=== PATIENT | female | born 1950 | race Caucasian/White ===

== ENCOUNTER → 2016-10-20 | Outpatient (CLI) | payer OTHER | LOC: BHFA 09:00 | PROVIDERS: ATTEND Internal Medicine Interventional Cardiology | DX: I25.10 Atherosclerotic heart disease of native coronary artery without angina pectoris (principal); E78.5 Hyperlipidemia, unspecified ==

== ENCOUNTER 2016-11-13 07:31 | Inpatient (IN) | payer OTHER ==
--- NOTE | 2016-11-09 08:38 | PDGENHP ---
History and Physical - Chief Complaint Left Hip Pain - History of Present Illness 1. Left~Gluteus Medius Tendinopathy~and partial tears, GT bursitis HISTORY OF PRESENT ILLNESS: Wayneis a 66 y.o.~active female~who I have had the pleasure to consult on today.~I have enjoyed meeting her. She~lives in [place]. 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 ~She~is single/window; she~has two~children. ~Wayneenjoys pool exercise, hiking. Cinthya's left~hip pain~started summer 2014, with no~recalled trauma or injury, and with no~previous complaints. Presentation today is of~anterior and lateral left~hip pain. ~The hip does~wake her~at night and does not~click and catch on her. Sitting can be uncomfortable~ for her. Waynedoes~report suffering from lower back pain episodes. Waynehas~participated in physical therapy for several months~and has~tried other conservative measures including one Left ~GT bursa hip injection July 2015 , which provided some relief for a couple months . She~has not~received sufficient symptomatic improvement. Waynehas~utilized medication for pain management, including Vicodin. Waynehas used medication for intermittently several months. Waynedenies issues with the right~hip. ~ Wayneunderstands that she~has a hip and pelvis problem which should be researched and wishes to get a better understanding of her~hip status, followed by an establishment of a treatment strategy, hoping she~would be able to get back to her~well being active life. History: Past medical history: ~ None which is relevant Relevant familial history: None which is relevant Past surgical history: No. Surgery Anesthesia Year Outcome 1 Hysterectomy General Good 2 Major Bladder Repair General Good 3 Foot Surgeries General Mid 80s Good 4 Ankle Scope General 07/07 Good 5 Toe Repairs Left General & 02/05 Good Waynedescribes problematic issues with general anesthesia which includes nausea , which transdermal patch helps to relieve and avoid nausea. I have reviewed, verified and agree with the past medical, surgical, family and social history. Current Medications:~has a current medication list which includes the following prescription(s): allopurinol, aspirin, biotin, cholecalciferol (vitamin d3), docosahexanoic acid/epa, hydrocodone-acetaminophen, meclizine hcl, metoprolol succinate, pyridoxine hcl (vitamin b6), ranitidine hcl, rosuvastatin, tocilizumab, vitamin e, and zoledronic [id number]. ALLERGIES:~is allergic to bactrim [sulfamethoxazole-trimethoprim]; nucynta [ tapentadol]; and percocet [oxycodone-acetaminophen]. Objective: Physical Examination: Wayneis 5~feet 6~inches tall and weighs 205~Lbs. Wayneis AAO x3; she~is well- nourished, in NAD. Skin is warm and dry. ~Breathing is non-labored. ~CV with RRR by pulse. Abdomen is soft, NTND. Currently, she~walks with a abnormal antalgic~gait. Trendelenburg sign is negative~and proprioception~is reduced, both~sides. Lower spine examination is negative~for sciatic or femoral nerve irritation with negative~SLR &~femoral stretch tests. Range of motion of the spine is normal~for flexion, extension, and rotations, with~associated pain. Strength, Sensation and pulses are normal - bilaterally Hip ROM (degrees): FL ER At 90~hip FL IR At 90~hip FL AB R 95 65 5 35 L 95 55 5 40 Specific hip and pelvis tests: Quadrant KVNG Roll R + + Negative L Negative Negative Negative Glut. Med ITB R Negative 5/5 strength Negative 5/5 strength L +++ 4/5 strength Negative 4/5 strength Greater trochanteric burse is painful~on both hips~L>>R. Piriformis tests: FAIR is negative, with no~local signs of neuritis related to sciatic nerve. On a daily basis, Cinthya's overall total pain come from GT/Gluts region Imaging: Radiology studies which I~have personally reviewed, analyzed and measured are below: XR: AP of the hip and pelvis: Joint space is preserved MRI shows: Left Gluteus Medius tendon tear, Gt bursitis Impression and plan:~ Wayneis a 66 y.o.~active female~suffering from symptomatic left pelvic pain due to Left~Gluteus Medius Tendinopathy~causing significant disability to her~ and altering~her~sport and life activities. Physical examination, imaging, and her~story correspond with the diagnosis mentioned above. We discussed the pathology of Gluteus Medius tendon tear and details of conservative measures (Steroid/PRP injections, PT) and~its surgical repair. ~We discussed the risks, benefits and expected outcomes for this surgery, including rehabilitation protocols afterwards. Cinthya~will review the info presented. Cinthya~will talk with our patient scheduler about possible surgery dates. Cinthya~is happy with this plan. I have also supplied her~with handouts, outlining the expected surgical treatment and rehab involved. I wish~Cinthya~all the best, ~~ Kimberly Kim [facility] History Information - Allergies/Home Medication List Allergies/Adverse Reactions: tapentadol HCl [From Nucynta] Allergy (Mild, Verified 11/02/16 12:46) Itching acetaminophen [From Percocet] Allergy (Verified 11/02/16 12:46) Vomiting oxycodone [From Percocet] Allergy (Verified 11/02/16 12:46) Vomiting sulfamethoxazole [From Bactrim] Allergy (Verified 11/02/16 12:46) Vomiting trimethoprim [From Bactrim] Allergy (Verified 11/02/16 12:46) Vomiting CATS Allergy (Severe, Uncoded 02/25/12 16:49) ASTHMA DUST Allergy (Severe, Uncoded 02/25/12 16:49) ASTHMA Home Medications: Allopurinol 06/07/14 [Last Taken Unknown] Aspirin 81mg (OTC) 06/07/14 [Last Taken Unknown] Betaserc 06/07/14 [Last Taken Unknown] Crestor 06/07/14 [Last Taken Unknown] Krill Oil 06/07/14 [Last Taken Unknown] Meclizine HCl 06/07/14 [Last Taken Unknown] Metoprolol Tartrate 06/07/14 [Last Taken Unknown] Vitamin B6 06/07/14 [Last Taken Unknown] Vitamin E 06/07/14 [Last Taken Unknown] Zantac 06/07/14 [Last Taken Unknown] ACTEMRA 11/02/16 [Last Taken Unknown] BIOTIN 11/02/16 [Last Taken Unknown] Hydrocodon-Acetaminophen 5-500 11/02/16 [Last Taken Unknown] Vitamin D3 11/02/16 [Last Taken Unknown] I have personally reviewed and updated: medical history - Social History Smoking Status: Never smoked Review of Systems Review of Systems: Physical Exam Physical Exam:
[2016-11-13] MEDS ORDERED: ACETAMINOPHEN 500 MG TAB PO ONE (07:36)
[2016-11-13] MEDS ORDERED: PREGABALIN 150 MG CAP PO ONE (07:36)
[2016-11-13] MEDS ORDERED: ceFAZolin 2 GM/DEXTROSE 100 ML IV ONE (07:36)
[2016-11-13] MEDS ORDERED: LR 1,000 ML IV ONE (07:37)
[2016-11-13] MEDS ORDERED: LIDOCAINE 1% 2 ML INJ ID PRN (07:37)
--- NOTE | 2016-11-13 07:48 | PDANEPAE ---
ANE History of Present Illness left gluteus medius tear ANE Past Medical History - Cardiovascular History Hx Hypertension: Yes Hx Arrhythmias: No Hx Chest Pain: No Hx Coronary Artery / Peripheral Vascular Disease: Yes Hx CHF / Valvular Disease: No Hx Palpitations: No Cardiovascular History Comment: CAD. HYPERLIPIDEMIA. HTN. 02/25/12 CARDIAC EVENT AND WAS HOSPITALIZED - ACS NO PCI PERFORMED - Pulmonary History Hx COPD: No Hx Asthma/Reactive Airway Disease: Yes Hx Recent Upper Respiratory Infection: No Hx Oxygen in Use at Home: No Hx Sleep Apnea: No Sleep Apnea Screening Result - Last Documented: Negative Pulmonary History Comment: ASTHMA- USES VENTOLIN VERY OCCASSIONALLY AND HASN'T USED IN AWHILE - Neurologic History Hx Cerebrovascular Accident: No Hx Seizures: No Hx Dementia: No Neurologic History Comment: MENIERE'S DISEASE - Endocrine History Hx Diabetes: No Obesity: yes, moderate Endocrine History Comment: HYPERPARATHYROIDISM - Renal History Hx Renal Disorders: No - Liver History Hx Hepatic Disorders: No - Neurological & Psychiatric Hx Hx Neurological and Psychiatric Disorders: No - Cancer History Hx Cancer: Yes Cancer History Comment: SKIN CA - Congenital Disorder History Hx Congenital Disorders: No - GI History GERD: moderate Hx Gastrointestinal Disorders: Yes Gastrointestinal History Comment: REFLUX - Other Health History Other Health History: WEARS GLASSES. RHEUMATOID ARTHRITIS - Chronic Pain History Chronic Pain: Yes (CHRONIC LOW BACK PAIN) - Surgical History Prior Surgeries: 02/03/[address] GAMEZ. ANKLE SCOPE 2011. COMPLETE HYSTERECTOMY AND BLADDER REPAIR 1992. REMOVAL OF SQUAMOUS AND BASAL CELL ANE Review of Systems Review of Systems: - Exercise capacity METS (RN): 4 METS ANE Patient History - Allergies Allergies/Adverse Reactions: tapentadol HCl [From Nucynta] Allergy (Mild, Verified 11/02/16 12:46) Itching acetaminophen [From Percocet] Allergy (Verified 11/02/16 12:46) Vomiting oxycodone [From Percocet] Allergy (Verified 11/02/16 12:46) Vomiting sulfamethoxazole [From Bactrim] Allergy (Verified 11/02/16 12:46) Vomiting trimethoprim [From Bactrim] Allergy (Verified 11/02/16 12:46) Vomiting CATS Allergy (Severe, Uncoded 02/25/12 16:49) ASTHMA DUST Allergy (Severe, Uncoded 02/25/12 16:49) ASTHMA - Home Medications Home medications: home medication list seen and reviewed Home Medications: Allopurinol 06/07/14 [Last Taken Unknown] Aspirin 81mg (OTC) 06/07/14 [Last Taken Unknown] Betaserc 06/07/14 [Last Taken Unknown] Crestor 06/07/14 [Last Taken Unknown] Krill Oil 06/07/14 [Last Taken Unknown] Meclizine HCl 06/07/14 [Last Taken Unknown] Metoprolol Tartrate 06/07/14 [Last Taken Unknown] Vitamin B6 06/07/14 [Last Taken Unknown] Vitamin E 06/07/14 [Last Taken Unknown] Zantac 06/07/14 [Last Taken Unknown] ACTEMRA 11/02/16 [Last Taken Unknown] BIOTIN 11/02/16 [Last Taken Unknown] Hydrocodon-Acetaminophen 5-500 11/02/16 [Last Taken Unknown] Vitamin D3 11/02/16 [Last Taken Unknown] - Anes Hx Anes Hx: post operative nausea - Smoking Hx Smoking Status: Never smoked - Family Anes Hx Family Hx Anesthesia Complications: UNKNOWN ANE Labs/Vital Signs - Vital Signs Height: 167.64 cm Weight: 90.718 kg ANE Physical Exam - Airway Neck exam: FROM Mallampati Score: Class 2 Mouth exam: small mouth opening - Pulmonary Pulmonary: no respiratory distress - Cardiovascular Cardiovascular: regular rate and rhythym - ASA Status ASA Status: III ANE Anesthesia Plan Anesthesia Plan: general endotracheal anesthesia
[2016-11-13] MEDS ORDERED: BUPIVACAINE 0.25% 30 ML SDV ONE (07:49)
[2016-11-13] MEDS ORDERED: MIDAZOLAM 2 MG/2 ML VIAL IVP ONE (07:58)
[2016-11-13] MEDS ORDERED: SCOPOLAMINE HYDROBROMIDE 1 MG/3 DAYS PATCH TD ONE (07:59)
[2016-11-13] MEDS ORDERED: PROPOFOL 200 MG/20 ML VIAL ONE (08:05)
[2016-11-13] MEDS ORDERED: fentaNYL 100 MCG/2 ML INJ ONE (08:05)
[2016-11-13] MEDS ORDERED: LIDOCAINE 2% 5 ML SDV ONE (08:10)
[2016-11-13] MEDS ORDERED: ONDANSETRON 4 MG/2 ML VIAL ONE ×3 (08:10→15:02)
[2016-11-13] MEDS ORDERED: SUGAMMADEX SODIUM 200 MG/2 ML VIAL IVP ONE (08:10)
[2016-11-13] MEDS ORDERED: DEXAMETHASONE 4 MG/ML VIAL ONE (08:10)
[2016-11-13] MEDS ORDERED: ROCURONIUM 100 MG/10 ML VIAL ONE (08:10)
[2016-11-13] MEDS ORDERED: HYDROmorphONE/DILAUDID 2 MG/ML INJ ONE (09:07)
[2016-11-13] MEDS ORDERED: LABETALOL HCL 5 MG/ML 20 ML MDV ONE (10:35)
[2016-11-13] MEDS ORDERED: LABETALOL HCL 5 MG/ML 20 ML MDV IVP PRN (10:42)
[2016-11-13] MEDS ORDERED: HYDROCODONE/APAP 5/325 TAB PO PRN (10:42)
[2016-11-13] MEDS ORDERED: HYDROmorphONE/DILAUDID 1 MG/ML INJ IVP PRN (10:42)
[2016-11-13] MEDS ORDERED: PROMETHAZINE HCL 25 MG/ML INJ IVP PRN (10:42)
[2016-11-13] MEDS ORDERED: ALBUTEROL 3 ML DEYVIAL IH PRN (10:42)
[2016-11-13] MEDS ORDERED: LR 500 ML IV PRN (10:42)
[2016-11-13] MEDS ORDERED: NALOXONE HCL 0.4 MG/ML INJ IVP PRN (10:42)
[2016-11-13] MEDS ORDERED: fentaNYL 100 MCG/2 ML INJ IVP PRN (10:42)
--- NOTE | 2016-11-13 11:26 | POSTANESTH ---
Post Anesthetic Evaluation Cardiovascular Status: Normal, Stable Respiratory Status: Normal, Stable Level of Consciousness/Mental Status: Can Participate in Eval Pain Control: Adequate, Prn Tx Ordered Nausea/Vomiting Control: Adequate, Prn Tx Ordered Complications Possibly Related to Anesthesia: None Noted
[2016-11-13] MEDS: ONDANSETRON 4 MG/2 ML VIAL IVP PRN ×2 (11:52→15:06)
[2016-11-13] MEDS ORDERED: PROMETHAZINE HCL 25 MG/ML INJ ONE (16:13)
[2016-11-13] MEDS ORDERED: oxyCODONE IR 15 MG TAB PO PRN ×2 (16:25→17:01)
[2016-11-13] MEDS: HYDROmorphONE/DILAUDID 1 MG/ML INJ IVP PRN (18:47)
[2016-11-13] MEDS: ONDANSETRON DISINTEGRATING 4 MG TAB PO PRN (18:47)
[2016-11-14] MEDS: HYDROmorphONE/DILAUDID 1 MG/ML INJ IVP PRN (00:16)
[2016-11-14] MEDS: oxyCODONE IR 5 MG TAB PO PRN ×4 (06:50→21:29)
[2016-11-14] MEDS: ONDANSETRON DISINTEGRATING 4 MG TAB PO PRN ×2 (06:51→14:13)
[2016-11-14] MEDS ORDERED: PATCH REMOVAL 1 EA PATCH TD ONE (07:59)
[2016-11-14] MEDS: DIAZEPAM 2 MG TAB PO PRN ×2 (10:54→18:28)
[2016-11-14] MEDS ORDERED: MECLIZINE HCL 12.5 MG TAB PO PRN (12:36)
[2016-11-14] MEDS ORDERED: SUMAtriptan 25 MG TAB PO PRN (12:36)
[2016-11-14] MEDS ORDERED: FLUTICASONE NASAL 120 SPRAYS/16 GM MDI NS PRN (12:36)
[2016-11-14] MEDS ORDERED: NON-FORMULARY NEW DRUG (Ranitidine Hcl [Zantac] 150 MG) PO PRN (12:36)
[2016-11-14] MEDS ORDERED: ALBUTEROL 60 PUFFS/8 GM MDI IH SCH (12:45)
[2016-11-14] MEDS ORDERED: FAMOTIDINE 20 MG TAB PO PRN (12:47)
[2016-11-14] MEDS: ALBUTEROL 200 PUFFS/18 GM MDI IH SCH ×3 (13:36→20:51)
[2016-11-14] MEDS: ALLOPURINOL 100 MG TAB PO SCH (14:03)
[2016-11-14] MEDS: METOPROLOL SUCCINATE XR 50 MG TAB PO SCH (14:03)
[2016-11-14] MEDS: ROSUVASTATIN CALCIUM 20 MG TAB PO SCH (14:03)
[2016-11-14] MEDS: ASPIRIN EC 81 MG TAB PO SCH (14:16)
--- NOTE | 2016-11-14 16:17 | ASMTCMCOM ---
CM Note CM Note Notes: Pt had L gluteus tear repair. No therapies ordered. ELEONORA Doran reports no concerns and pt may d/c today. Anticipate pt will d/c when medically stable. CM available for changes/needs. Date Signed: 11/14/2016 04:17 PM Electronically Signed By:VICENTE De Anda
--- NOTE | 2016-11-14 18:19 | SOAPPROG ---
SOAP Progress Note Assessment/Plan: Assessment: 1 day post op Left Gluteus Medius repair Plan: PT/OT Case Management to work on SNF placement oral analgesics Non-Weight bearing LLE 11/14/16 18:16 Subjective: Cinthya has been well pain managed today. She denies any cp, sob or nausea. She has had difficulity with transferring from the bed to a standing position and she has concerns that, since she lives alone, falling is a real possibility. She has not been seen by PT/OT today and she does not feel strong enough to be discharged home, given her social situation. Objective: Vital Signs Temp Pulse Resp BP Pulse Ox 36.9 C 60 16 129/69 H 95 11/14/16 15:22 11/14/16 16:46 11/14/16 16:46 11/14/16 15:22 11/14/16 16:46 11/13/16 11/14/16 11/15/16 05:59 05:59 05:59 Intake Total 2970 600 Output Total 350 450 Balance 2620 150 Well appearing in NAD Left hip: dressings clean dry intact hip abduction brace appropriately secure some edema full ROM of foot and ankle. NVI distally - Pending Discharge Pending Discharge Within 48 Hours: Yes Pending Discharge Date: 11/16/16 Pending Discharge Time: 11:00 ICD10 Worksheet Patient Problems: Problems Problem Status Onset Post-operative pain Acute - ICD10 Problem Qualifiers (1) Post-operative pain
[2016-11-15] MEDS: DIAZEPAM 2 MG TAB PO PRN ×2 (01:23→08:26)
[2016-11-15] MEDS: ALBUTEROL 200 PUFFS/18 GM MDI IH SCH ×6 (01:59→21:46)
[2016-11-15] MEDS: oxyCODONE IR 5 MG TAB PO PRN ×2 (06:42→13:52)
[2016-11-15] MEDS: ALLOPURINOL 100 MG TAB PO SCH (08:25)
[2016-11-15] MEDS: ROSUVASTATIN CALCIUM 20 MG TAB PO SCH (08:25)
[2016-11-15] MEDS: METOPROLOL SUCCINATE XR 50 MG TAB PO SCH (08:26)
[2016-11-15] MEDS: ASPIRIN EC 81 MG TAB PO SCH (08:26)
[2016-11-15] MEDS: ONDANSETRON DISINTEGRATING 4 MG TAB PO PRN (18:24)
[2016-11-16] MEDS: ALBUTEROL 200 PUFFS/18 GM MDI IH SCH ×6 (01:31→20:39)
[2016-11-16] MEDS: METOPROLOL SUCCINATE XR 50 MG TAB PO SCH (08:09)
[2016-11-16] MEDS: ROSUVASTATIN CALCIUM 20 MG TAB PO SCH (08:11)
[2016-11-16] MEDS: ALLOPURINOL 100 MG TAB PO SCH (08:12)
[2016-11-16] MEDS: ASPIRIN EC 81 MG TAB PO SCH (08:12)
[2016-11-16] MEDS: DIAZEPAM 2 MG TAB PO PRN ×3 (08:20→21:30)
--- NOTE | 2016-11-16 08:57 | PDIAF ---
- Diagnosis Code Status: Full Code - Medication Management Discharge Medications: Medications to Continue on Transfer Betaserc 16 mg PO DAILY 06/07/14 [Last Taken Unknown] Albuterol [Proventil Inhaler HFA (*)] 1 - 2 puffs IH Q4H 11/13/16 [Last Taken Unknown] Allopurinol [Allopurinol 100 MG (*)] 200 mg PO DAILY 11/13/16 [Last Taken Unknown] Aspirin EC [Aspirin EC 81 mg (*)] 81 mg PO DAILY 11/13/16 [Last Taken Unknown] Fluticasone Nasal [Flonase Nasal [place]] 1 sprays NASAL DAILY PRN 11/13/16 [Last Taken Unknown] Herbals/Supplements -Info Only 1 ea PO DAILY 11/13/16 [Last Taken Unknown] Hydrocodone/Acetaminophen [[place] 5/325 (*)] 1 - 2 tab PO Q4H PRN 11/13/16 [Last Taken Unknown] Meclizine HCl [Meclizine HCl 12.5 mg (*)] 12.5 mg PO BID PRN 11/13/16 [Last Taken Unknown] Metoprolol Succinate Xr [Toprol Xl 50 mg (*)] 50 mg PO DAILY 11/13/16 [Last Taken Unknown] Ranitidine HCl [Zantac] 150 mg PO DAILY PRN 11/13/16 [Last Taken Unknown] Rosuvastatin Calcium [Crestor 20mg (*)] 20 mg PO DAILY 11/13/16 [Last Taken Unknown] SUMAtriptan [Imitrex 25 MG (*)] 25 mg PO DAILY PRN 11/13/16 [Last Taken Unknown] Diazepam [Valium 2 MG (*)] 2 mg PO Q6HRS PRN tab 11/16/16 [Last Taken Unknown] HYDROmorphone HCL [Dilaudid] 0.2 mg IVP Q2HRS PRN inj 11/16/16 [Last Taken Unknown] Ondansetron Odt [Zofran Odt 4 mg (*)] 4 mg PO Q4HRS PRN tab 11/16/16 [Last Taken Unknown] oxyCODONE IR [Oxycodone Ir (*)] 10 - 20 mg PO Q4HRS PRN tab 11/16/16 [Last Taken Unknown] Discharge Medications: Refer to the Discharge Home Medication list for PRN reason. PICC Care - Routine: N/A - Orders Services needed: Registered Nurse, Certified It Infrastructure Consultant, Physical Therapy, Occupational Therapy Diet Recommendation: no restrictions on diet Activity/Weight Bearing Restrictions: Non-Weight bearing Left Lower Extremity - Follow Up Care Current Providers and Referrals: Nilda Queen MD [Primary Care Provider] -
[2016-11-16] MEDS: oxyCODONE IR 5 MG TAB PO PRN ×2 (11:33→21:30)
[2016-11-16] MEDS: ONDANSETRON DISINTEGRATING 4 MG TAB PO PRN ×2 (15:04→21:30)
[2016-11-17] MEDS: ALBUTEROL 200 PUFFS/18 GM MDI IH SCH ×4 (03:02→14:53)
[2016-11-17 07:40] VITALS: BP 119/52; RESP 18; TEMP 98.6
[2016-11-17] MEDS: METOPROLOL SUCCINATE XR 50 MG TAB PO SCH (09:14)
[2016-11-17] MEDS: ROSUVASTATIN CALCIUM 20 MG TAB PO SCH (09:14)
[2016-11-17] MEDS: ALLOPURINOL 100 MG TAB PO SCH (09:14)
[2016-11-17] MEDS: ASPIRIN EC 81 MG TAB PO SCH (09:15)
[2016-11-17 09:18] VITALS: PULSE 67
[2016-11-17 09:20] VITALS: O2SAT 89
[2016-11-17] MEDS ORDERED: LACTULOSE 20 GM/30 ML UDCUP PO PRN (11:01)
[2016-11-17] MEDS ORDERED: POLYETHYLENE GLYCOL 3350 17 GM PKT PO PRN (11:01)
[2016-11-17] MEDS ORDERED: MAGNESIUM HYDROXIDE 30 ML UDCUP PO PRN (11:01)
[2016-11-17] MEDS ORDERED: BISACODYL 10 MG SUPP PR PRN (11:01)
[2016-11-17] MEDS: DIAZEPAM 2 MG TAB PO PRN ×2 (11:11→16:44)
[2016-11-17] MEDS ORDERED: SENNOSIDES/DOCUSATE SODIUM TAB PO SCH (11:15)
--- NOTE | 2016-11-17 15:59 | ASMTCMCOM ---
CM Note CM Note Notes: Pt medically stable for d/c to [facility]. RN Pushpa to call report. Beatriz with [facility] approves pt d/c w/o having had a BM here. Date Signed: 11/17/2016 03:58 PM Electronically Signed By:VICENTE De Anda
--- NOTE | 2016-11-17 17:07 | ASDISCHSUM ---
Discharge Information Plan Status:SNF Medically Cleared to Leave: Discharge Date:11/17/2016 05:00 PM D/C Disposition:[facility] ADT D/C Disposition:[facility] Projected Discharge Date:11/17/2016 11:00 AM Transportation at D/C: Discharge Delay Reason: Follow-Up Date:11/17/2016 11:00 AM Discharge Slot: Final Diagnosis: Placement Information Referral Type:*Custodial/SNF Referral ID:[id number] Provider Name:Ruth Pickens [place] Address 1:[address] [place] Phone Number: Address 2: Fax Number: [facility]:[place] Selection Factors: State:[place] Referral Type:[facility] Referral ID:[id number] Provider Name: Address 1: Phone Number: Address 2: Fax Number: City: Selection Factors: State: Patient Contact Information Contact Name:NAYELI Relationship:Friend Address: City: [facility] Phone: [facility]/Zip Code: Email: Financial Information Financial Class: Primary Plan Desc:MEDICARE INPATIENT Primary Plan Number:[id number] Secondary Plan Desc:[facility] Secondary Plan Number:[id number] Assessment Information [facility] CM Progress Note CM Note CM Note Notes: Pt had L gluteus tear repair. No therapies ordered. ELEONORA Doran reports no concerns and pt may d/c today. Anticipate pt will d/c when medically stable. CM available for changes/needs. Date Signed: 11/14/2016 04:17 PM Electronically Signed By:VICENTE De Anda BC CM Progress Note CM Note CM Note Notes: Pt medically stable for d/c to [facility]. ELEONORA Barrow to call report. Beatriz with [facility] approves pt d/c w/o having had a BM here. Date Signed: 11/17/2016 03:58 PM Electronically Signed By:VICENTE De Anda Intervention Information Intervention Type:*KU-Signed Date of Service:11/14/2016 09:45 AM Patient Type:Observation Staff Member:Emily Lara Hours: Discipline: Severity: Comment: Intervention Type:*IM-Signed Date of Service:11/16/2016 12:09 PM Patient Type:Inpatient Staff Member:Emily Lara Hours: Discipline: Severity: Comment:
== END 2016-11-17 17:00 | DRG 502 ==
LOC: FSGY 07:31 → F3E 15:49 → F3N 16:58 → OBSVTOIN 11-14 18:59
PROVIDERS: ADMIT Orthopaedic Surgery Sports Medicine; ATTEND Orthopaedic Surgery Sports Medicine
PROC: 0LQK0ZZ Repair Left Hip Tendon, Open Approach (ICD-10-PCS; principal; 2016-11-13 09:00)
DX: M76.02 Gluteal tendinitis, left hip (principal); I10 Essential (primary) hypertension; E78.5 Hyperlipidemia, unspecified; J45.909 Unspecified asthma, uncomplicated; E21.3 Hyperparathyroidism, unspecified; Z85.820 Personal history of malignant melanoma of skin; G89.29 Other chronic pain
CPT/HCPCS: 97110-GP; 97116-GP; 97161-GP; 97165-GO; 97535-GO; C1713; G8978-GP-CK; G8979-GP-CJ; G8987-GO-CJ; G8988-GO-CI; J0171; J0690; J1100; J1170; J2250; J2405; J2550; J2704; J3010; J3490

== ENCOUNTER → 2016-12-01 | Day surgery (SDC) | payer OTHER ==
[~2016-12-01] MED LIST: IOPAMIDOL (ISOVUE-300) 100 ML BTL ONE; NALOXONE HCL 0.4 MG/ML INJ ONE; fentaNYL 100 MCG/2 ML INJ ONE
== END | disposition home or self-care (01) ==
LOC: EDUNIT# → FIMAGING 16:07 → EDSTATUS 22:25
PROVIDERS: ATTEND Radiology Diagnostic Radiology
PROC: 06H03DZ Insertion of Intraluminal Device into Inferior Vena Cava, Percutaneous Approach (ICD-10-PCS; principal; 2016-12-01)
DX: I82.4Y2 Acute embolism and thrombosis of unspecified deep veins of left proximal lower extremity (principal)
CPT/HCPCS: 37191; 75825; 99152; C1769; J1644; J3010; Q9967; J2310

== ENCOUNTER → 2016-12-31 | Outpatient (CLI) | payer OTHER | LOC: FIMAGING 10:40 | PROVIDERS: ATTEND Physician Assistant Medical | DX: M46.96 Unspecified inflammatory spondylopathy, lumbar region (principal); M51.26 Other intervertebral disc displacement, lumbar region; M47.816 Spondylosis without myelopathy or radiculopathy, lumbar region; M47.817 Spondylosis without myelopathy or radiculopathy, lumbosacral region; M51.24 Other intervertebral disc displacement, thoracic region; M48.07 Spinal stenosis, lumbosacral region ==

== ENCOUNTER → 2017-03-14 | Outpatient (CLI) | payer OTHER | LOC: CIMAGING 10:31 | PROVIDERS: ATTEND Radiology Diagnostic Radiology | DX: Z86.718 Personal history of other venous thrombosis and embolism (principal) | CPT/HCPCS: 93971-PO ==

== ENCOUNTER 2017-03-27 07:18 | Day surgery (SDC) | payer OTHER ==
[2017-03-27] MEDS ORDERED: MEPERIDINE 25 MG/ML SYR IVP PRN (07:28)
[2017-03-27] MEDS ORDERED: MIDAZOLAM 2 MG/2 ML VIAL IVP PRN (07:28)
[2017-03-27] MEDS ORDERED: NALOXONE HCL 0.4 MG/ML INJ IVP PRN (07:28)
[2017-03-27] MEDS ORDERED: FLUMAZENIL 0.5 MG/5 ML MDV IVP PRN (07:28)
[2017-03-27] MEDS ORDERED: NS 1,000 ML IV SCH (07:30)
[2017-03-27] MEDS ORDERED: SCOPOLAMINE HYDROBROMIDE 1 MG/3 DAYS PATCH TD ONE ×2 (07:35→07:45)
[2017-03-27 08:18] VITALS: RESP 16
[2017-03-27] MEDS: fentaNYL 100 MCG/2 ML INJ IVP PRN ×2 (08:19→10:08)
--- NOTE | 2017-03-27 09:28 | PDGENHP ---
History & Physical Chief Complaint: 4 MONTH OLD FILTER NEEDS TO BE REMOVED History of Present Illness: LLE DVT; ON COUMADIN; LT LEG MORE SWOLLEN THAN RIGHT. Pertinent Past, Social, Family History: LT HAMMERTOE REPAIR, HYSTERECTOMY, BASAL CELL Relevant Physical Exam: NOT IN DISTRESS Cardiorespiratory Assessment: RRR, CTA
--- NOTE | 2017-03-27 09:29 | PDPROPOC ---
Sedation Plan of Care ASA Classification: ASA 2 Planned drugs: fentanyl, midazolam Mallampati Score: Class 4 Mallampati Reference Image: Patient passed 3-3-2 rule?: Yes
[2017-03-27] MEDS ORDERED: ACETAMINOPHEN 325 MG TAB PO PRN (10:08)
--- NOTE | 2017-03-27 10:08 | PDRADPN ---
Radiology Procedure Note Date of Procedure: 03/27/17 Radiologist: Peyton Barbour Anesthesia: IV Sedation Pre-op Diagnosis: dvt Post-op Diagnosis: same Indication: filter removal Procedure: filter removal Finding(s): see report Inf/Abcess present in the surg proc area at time of surgery?: No Complications: None
[2017-03-27] MEDS ORDERED: IOPAMIDOL (ISOVUE-300) 100 ML BTL ONE (10:21)
[2017-03-27 10:43] VITALS: PULSE 47; O2SAT 99
[2017-03-27 10:56] VITALS: TEMP 98.2
[2017-03-27 11:25] VITALS: BP 161/66
== END 2017-03-27 11:18 | disposition home or self-care (01) ==
LOC: FIMAGING 07:18
PROVIDERS: ATTEND Radiology Diagnostic Radiology
PROC: 06PY3DZ Removal of Intraluminal Device from Lower Vein, Percutaneous Approach (ICD-10-PCS; principal; 2017-03-27 10:20)
DX: Z45.89 Encounter for adjustment and management of other implanted devices (principal); Z86.718 Personal history of other venous thrombosis and embolism; Z79.01 Long term (current) use of anticoagulants
CPT/HCPCS: 37193; 75825; 99152; C1769; C1773; C1892; J1644; J2250; J2310; J3010; Q9967

== ENCOUNTER → 2017-07-25 | Outpatient (CLI) | payer OTHER | LOC: FIMAGING 08:48 | PROVIDERS: ATTEND Internal Medicine Rheumatology | DX: Z13.820 Encounter for screening for osteoporosis (principal); M85.89 Other specified disorders of bone density and structure, multiple sites; Z78.0 Asymptomatic menopausal state ==